=== PATIENT | male | born 1985 | race Caucasian/White ===

== ENCOUNTER 2024-03-31 15:07 | Emergency (ER) | payer BC, OTHER ==
[~2024-03-31] VITALS: Ht 188 cm; Wt 90.9 kg
[2024-03-31 15:11] VITALS: BP 157/85; PULSE 98; RESP 16; TEMP 98.4; O2SAT 99
[2024-03-31] MEDS ORDERED: DOXY100C43 PO (15:27)
== END 2024-03-31 15:55 | disposition home or self-care (01) ==
LOC: ER 15:08
DX: L02.412 Cutaneous abscess of left axilla (principal); F41.9 Anxiety disorder, unspecified; F12.90 Cannabis use, unspecified, uncomplicated; Z79.2 Long term (current) use of antibiotics
CPT/HCPCS: 99283